=== PATIENT | female | born 1980 | race African-American/Black ===

== ENCOUNTER 2017-06-05 14:31 | Inpatient (IN) | payer SELFPAY ==
[~2017-06-05] VITALS: Ht 175.3 cm; Wt 100.7 kg
[2017-06-05] MEDS ORDERED: BUTORPHANOL TARTRATE 2 MG/ML VIAL IV PRN (15:00)
[2017-06-05] MEDS ORDERED: LIDOCAINE HCL 1% 20ML VIAL (Pyxis) INJ INFIL SCH (15:00)
[2017-06-05] MEDS ORDERED: DINOPROSTONE 10MG VAGINAL INSERT VG NR (15:00)
[2017-06-05] MEDS ORDERED: METHYLERGONOVINE MALEATE 0.2 MG/ML IM PRN (15:00)
[2017-06-05] MEDS ORDERED: PENICILLIN G POTASSIUM 5 MMU in DEXT 5% WATER 100 ML IV NR (15:00)
[2017-06-05] MEDS ORDERED: CARBOPROST TROMETHAMINE 250 MCG/ML AMPUL IM PRN (15:00)
[2017-06-05] MEDS ORDERED: NALOXONE HCL 0.4 MG/ML 1ML VIAL IM PRN (15:00)
[2017-06-05] MEDS: LACTATED RINGERS 1,000 ML IV SCH ×4 (15:21→23:49)
[2017-06-05] MEDS ORDERED: PENICILLIN G POTASSIUM 5 MMU in SODIUM CHLORIDE 0.9% 100 ML IV NR (15:25)
[2017-06-05 15:30] LABS: CLARITY URINE CLEAR (CLEAR); COLOR URINE YELLOW (YELLOW); KETONES URINE NEGATIVE (NEGATIVE); LEUKOCYTE ESTERASE URINE NEGATIVE (NEGATIVE); NITRITE URINE NEGATIVE (NEGATIVE); OCCULT BLOOD URINE TRACE (NEGATIVE); PROTEIN URINE NEGATIVE (NEGATIVE); SPECIFIC GRAVITY URINE 1.018 (1.005-1.030); UROBILINOGEN URINE 0.2 E.U./dL (0.2-1.0)
[2017-06-05 15:38] LABS: HEMATOCRIT. 40.7 % (36.0-48.0); HEMOGLOBIN. 13.7 g/dL (12.0-16.0); MEAN CORPUSCULAR HEMOGLOBIN 28.9 pg (28.0-32.0); MEAN CORPUSCULAR VOLUME 85.8 fL (81.0-99.0); MEAN PLATELET VOLUME 8.9 fl (7.4-10.4); PLATELET 138 x1000/uL (130-400); RED BLOOD CELL COUNT 4.75 mill/uL (4.2-5.4); RED CELL DISTRIBUTION WIDTH 15.2 % (11.6-14.6)
[2017-06-05 15:43] LABS: *AMPHETAMINES SCREEN URINE NEGATIVE (NEGATIVE); *BARBITURATES SCREEN URINE NEGATIVE (NEGATIVE); *BENZODIAZEPINES SCREEN URINE NEGATIVE (NEGATIVE); *COCAINE SCREEN URINE NEGATIVE (NEGATIVE); CANNABINOID URINE SCREEN NEGATIVE (NEGATIVE); METHADONE URINE SCREEN NEGATIVE (NEGATIVE); OPIATES URINE SCREEN NEGATIVE (NEGATIVE); PHENCYCLIDINE URINE SCREEN NEGATIVE (NEGATIVE)
[2017-06-05 15:48] LABS: INR 0.9; PARTIAL THROMBOPLASTIN TIME 25.8 sec (23.4-31.0); PROTHROMBIN TIME 9.6 sec (9.4-11.6)
[2017-06-05 16:08] LABS: PLATELET ESTIMATE NORMAL
[2017-06-05 16:42] LABS: HEPATITIS B SURFACE ANTIGEN NEGATIVE
[2017-06-05 16:45] LABS: RUBELLA IGG > 500.0 IU/mL (4.99-10)
[2017-06-05] MEDS ORDERED: BUPIVACAINE HCL/NS/PF EPIDURAL 100 ML EP ONE (20:07)
[2017-06-05] MEDS ORDERED: FENTANYL CITRATE/PF 50MCG/ML 5ML VIAL ONE (20:07)
[2017-06-05] MEDS ORDERED: BUPIVACAINE HCL/PF 0.25% (2.5MG/ML) 10ML ONE (20:07)
[2017-06-05] MEDS: PENICILLIN G POTASSIUM 2.5 MMU in DEXTROSE 5% WATER 50 ML IV SCH ×2 (20:38→23:58)
[2017-06-05] MEDS ORDERED: BUPIVACAINE HCL/NS/PF EPIDURAL 100 ML EP SCH (20:45)
[2017-06-06] MEDS: DEXT 5%/LR + PITOCIN 20UNITS/L 1,000 ML IV SCH ×3 (01:57→17:54)
[2017-06-06] MEDS: PENICILLIN G POTASSIUM 2.5 MMU in DEXTROSE 5% WATER 50 ML IV SCH ×2 (04:04→07:43)
[2017-06-06] MEDS ORDERED: LIDOCAINE HCL/PF 2% 20MG/ML 5 ML/VIAL ONE ×4 (05:02→14:07)
[2017-06-06] MEDS ORDERED: FENTANYL CITRATE/PF 50MCG/ML 2ML VIAL ONE ×2 (05:16→13:38)
[2017-06-06] MEDS ORDERED: BUPIVACAINE HCL/NS/PF EPIDURAL 100 ML EP ONE ×2 (05:36→11:43)
[2017-06-06] MEDS: LACTATED RINGERS 1,000 ML IV SCH (07:44)
[2017-06-06] MEDS ORDERED: MORPHINE SULFATE/PF 1MG/ML 10ML AMP ONE (13:46)
[2017-06-06] MEDS ORDERED: OXYTOCIN 10 UNITS/ML 1ML ONE (13:54)
[2017-06-06] MEDS ORDERED: KETAMINE HCL 50 MG/ML 10ML ONE (13:56)
[2017-06-06] MEDS ORDERED: MIDAZOLAM HCL 2 MG/2 ML VIAL ONE (14:01)
[2017-06-06] MEDS ORDERED: IBUPROFEN 600MG TABLET PO PRN (14:30)
[2017-06-06] MEDS ORDERED: ONDANSETRON HCL 4MG/2ML VIAL ONE (14:32)
[2017-06-06] MEDS ORDERED: DIPHENHYDRAMINE 50MG/ML VIAL IV PRN (15:00)
[2017-06-06] MEDS ORDERED: BUTORPHANOL TARTRATE 2 MG/ML VIAL IV PRN (15:00)
[2017-06-06] MEDS ORDERED: NALOXONE HCL 0.4 MG/ML 1ML VIAL IV PRN (15:00)
[2017-06-06 17:10] VITALS: BP 113/57
[2017-06-06 18:19] VITALS: BP 110/56
[2017-06-06 20:00] VITALS: BP 96/61
[2017-06-06] MEDS: KETOROLAC 30MG/ML VIAL IV PRN (21:02)
[2017-06-07] MEDS: DEXT 5%/LR + PITOCIN 20UNITS/L 1,000 ML IV SCH (04:22)
[2017-06-07] MEDS: KETOROLAC 30MG/ML VIAL IV PRN (06:31)
[2017-06-07 06:52] VITALS: BP 115/65
[2017-06-07 08:09] VITALS: BP 90/47
[2017-06-07] MEDS: PRENATAL VIT/FE FUMARATE/FA TABLET PO SCH (09:35)
[2017-06-07 10:25] LABS: BASOPHILS % 0.1 % (0.0-2.0); EOSINOPHILS % 0.2 % (0.0-5.0); HEMATOCRIT. 27.8 % (36.0-48.0); HEMOGLOBIN. 9.2 g/dL (12.0-16.0); LYMPHOCYTES % 11.4 % (20.0-50.0); MEAN CORPUSCULAR HEMOGLOBIN 28.5 pg (28.0-32.0); MEAN CORPUSCULAR VOLUME 86.1 fL (81.0-99.0); MEAN PLATELET VOLUME 8.4 fl (7.4-10.4); MONOCYTES % 8.1 % (2.0-8.0); NEUTROPHILS % 80.2 % (40.0-76.0); PLATELET 109 x1000/uL (130-400); RED BLOOD CELL COUNT 3.23 mill/uL (4.2-5.4); RED CELL DISTRIBUTION WIDTH 15.3 % (11.6-14.6)
[2017-06-07] MEDS: ACETAMINOPHEN WITH CODEINE 300/30MG TABLET PO PRN ×2 (15:17→23:23)
[2017-06-07 16:14] VITALS: BP 126/71
[2017-06-07] MEDS ORDERED: FERROUS SULFATE 325MG TABLET PO SCH (17:00)
[2017-06-07 20:30] VITALS: BP 112/62
[2017-06-07] MEDS: DOCUSATE SODIUM 100MG CAPSULE PO SCH (23:21)
[2017-06-08] VITALS: BP 111/69
[2017-06-08 04:22] VITALS: BP 102/61
[2017-06-08] MEDS: ACETAMINOPHEN WITH CODEINE 300/30MG TABLET PO PRN ×3 (04:23→19:38)
[2017-06-08 08:44] VITALS: BP 100/52
[2017-06-08] MEDS: DOCUSATE SODIUM 100MG CAPSULE PO SCH ×2 (13:01→21:18)
[2017-06-08 15:33] VITALS: BP 103/61
[2017-06-08 19:35] VITALS: BP 111/65
[2017-06-08] MEDS ORDERED: BISACODYL 5MG TABLET PO SCH (21:00)
[2017-06-08 23:37] VITALS: BP 99/68
[2017-06-09] MEDS: ACETAMINOPHEN WITH CODEINE 300/30MG TABLET PO PRN (08:02)
[2017-06-09] MEDS: PRENATAL VIT/FE FUMARATE/FA TABLET PO SCH (08:03)
[2017-06-09 08:30] VITALS: BP 88/54
[2017-06-09] MEDS ORDERED: BISACODYL 5MG TABLET PO PRN (09:00)
== END 2017-06-09 16:30 | disposition home or self-care (01) | DRG 540 ==
LOC: OBSVTOIN 14:31 → L&D 14:31 → 7EST PP/OB 06-06 16:53
PROVIDERS: ADMIT Obstetrics & Gynecology Obstetrics; ATTEND Obstetrics & Gynecology Obstetrics
PROC: 10D00Z1 Extraction of Products of Conception, Low, Open Approach (ICD-10-PCS; principal; 2017-06-06 13:55)
DX: O32.4XX0 Maternal care for high head at term, not applicable or unspecified (principal); D25.1 Intramural leiomyoma of uterus; O76 Abnormality in fetal heart rate and rhythm complicating labor and delivery; O77.9 Labor and delivery complicated by fetal stress, unspecified; N80.0 Endometriosis of uterus; Z37.0 Single live birth
CPT/HCPCS: 36415; 80305; 81001; 85025; 85610; 85730; 86592; 86703; 86762; 86850; 86900; 87340; 88307; G0378; J1200; J1885; J2250; J2274; J2405; J2540; J2590; J3010; J3490; J7050; J7060; J7120